=== PATIENT | male | born 1965 | race Caucasian/White ===

== ENCOUNTER 2021-01-29 21:43 | Emergency (ER) | payer OTHER ==
[~2021-01-29] VITALS: Ht 177.8 cm; Wt 72.6 kg
[~2021-01-29 21:43] MED LIST: FOLI1 PO; LEVO750 PO; THIA100 PO
== END 2021-01-30 04:40 ==
LOC: ER 21:43
DX: I46.9 Cardiac arrest, cause unspecified (principal); J96.90 Respiratory failure, unspecified, unspecified whether with hypoxia or hypercapnia; Z79.899 Other long term (current) drug therapy
CPT/HCPCS: 31500; 92950; 99285-25; J7030